=== PATIENT | male | born 1950 | race Caucasian/White ===

== ENCOUNTER → 2016-10-16 | Outpatient (CLI) | payer BC, MEDICARE ==
[~2016-10-16] VITALS: Ht 185.4 cm; Wt 89.8 kg
[~2016-10-16] MED LIST: ALDACTONE25 MG; ATEN25TA; ATR20T; CATHETER FLUSH 10 ML SYR IV PRN; HYDR-707 PO; PARO20TA57; REGADENOSON 0.4 MG/5 ML SYR (LEXISCAN) IV ONE
[2016-10-16 09:15] VITALS: BP 132/72
[2016-10-16 09:29] VITALS: BP 143/73
[2016-10-16 09:31] VITALS: BP 150/76
--- NOTE | 2016-10-16 11:59 | STRESS TEST ---
DATE OF SERVICE: 10/16/2016 PROCEDURE: Exercise Myoview stress test. TEST DATE: 10/16/2016. Baseline heart rate is 47. Baseline blood pressure is 132/72. Baseline EKG is sinus rhythm with no ischemic changes. In summary, the patient was injected with 10.01 mCi of technetium-99 Myoview and the resting images were obtained. Then, the patient started exercising with the baseline heart rate, blood pressure and EKG mentioned above. At minute 2 and 46 seconds, the patient was unable to perform any further. Test was terminated and converted to Lexiscan Myoview stress test. The patient received 0.4 mg of Lexiscan followed by 31.4 mCi of technetium 99 Myoview. Throughout the test, there were no EKG changes. The resting and stress images were reviewed and compared in the short axis, horizontal long axis, and vertical long axis views. Review of the images showed no significant ischemia or infarction. SSS is 1, SDS 1, TID value 1.02. On the gated images, the left ventricle appeared to be normal size with normal contractility. Calculated ejection fraction 66%. CONCLUSION: 1. The patient was unable to exercise beyond 2 minutes 46 seconds. Test was terminated and converted to Lexiscan Myoview stress test. 2. The patient tolerated Lexiscan well. 3. No ischemia or infarction on SPECT images. 4. Normal left ventricular size with normal contractility. Calculated ejection fraction 66%. Job ID: [id number] DocumentID: [id number] Dictated Date: 10/16/2016 11:05:17 [employer] Software Engineer Date: 10/16/2016 11:36:32 Dictated By: QI MILLER MD
== END ==
LOC: CARD 07:48
PROVIDERS: ATTEND Internal Medicine Cardiovascular Disease
DX: I35.1 Nonrheumatic aortic (valve) insufficiency (principal); I10 Essential (primary) hypertension; I51.7 Cardiomegaly; R06.02 Shortness of breath
CPT/HCPCS: 78452; 93017